=== PATIENT | female | born 1950 | race Caucasian/White ===

== ENCOUNTER → 2024-09-20 | Outpatient (CLI) | payer MEDICARE ==
--- NOTE | 2024-09-20 18:26 | CT ---
EXAMINATION TYPE: CT knee RT wo con DATE OF EXAM: 09/20/2024 5:19 PM COMPARISON: . None CLINICAL INDICATION: Female, 74 years old with history of M25.561 R KNEE PAIN; PHH, OPAL for right to zaid knee arthroplasty. TECHNIQUE: Axial images were obtained of the CT knee RT wo con, Additional coronal and sagittal refor matted images and soft tissue and bone window were obtained for review. . Contrast used: mL of , (None if empty) Oral contrast used: (None if empty) CT DLP: 644 mGycm, Automated exposure control for dose reduction was used. FINDINGS: The visualized portion of the hips demonstrate mild osteoarthrosis changes with osteophyte formation of the acetabulum. No acute intrapelvic process. The bony structures of the pelvis are intact. Scatte red colonic diverticula are seen in the pelvis. The visualized knee demonstrates osteophyte formation of the tibial plateau, the patella and femoral condyles. There is a cortical defect involving the lateral femoral condyle with subchondral cystic c hange and deformity to the articular surface.. There is joint space narrowing and subchondral scleros is. Small joint effusion is present. No evidence of fracture. Visualized ankle demonstrates multifocal osteoarthrosis changes with osteophyte formation and mild chapito int space narrowing. No evidence of fractures. IMPRESSION: Severe right knee lateral joint osteoarthrosis. [facility], , 09/20/2024 6:24 PM
== END | disposition home or self-care (01) ==
LOC: RADCTMAIN 16:13
PROVIDERS: ATTEND Orthopaedic Surgery
DX: M17.11 Unilateral primary osteoarthritis, right knee (principal); M25.461 Effusion, right knee

== ENCOUNTER → 2024-11-04 | Outpatient (CLI) | payer MEDICARE ==
[2024-11-04 14:59] LABS: Partial Thromboplastin Time 22.7 sec (22.0-30.0); Prothrombin Time 10.6 sec (10.0-12.5)
[2024-11-04 19:24] LABS: HCT 37.2 % (37.2-46.3); HGB 12.2 g/dL (12.0-15.0); MCH 28.8 pg (27.0-32.0); MCHC 32.8 g/dL (32.0-37.0); MCV 87.9 FL (80.0-97.0); Mean Platelet Volume 8.9 FL (9.5-12.2); NRBC Per 100 WBC 0 X 10*3/uL (0.00-0.01); Platelet Count 333 X 10*3/uL (140-440); RBC 4.23 X 10*6/uL (4.10-5.20); RDW 13.9 % (11.5-14.5); WBC 11.34 X 10*3/uL (4.50-10.00)
[2024-11-04 19:26] LABS: Blood Urea Nitrogen 24.9 mg/dL (9.0-27.0); Chloride 103 mmol/L (96-109); Glucose 146 mg/dL (70-110); Potassium 3.8 mmol/L (3.5-5.5); Sodium 142 mmol/L (135-145)
[2024-11-04 19:27] LABS: ALT 13 U/L (8-44); AST 16 U/L (13-35); Albumin 4.1 g/dL (3.8-4.9); Albumin/Globulin Ratio 1.46 Ratio (1.60-3.17); Alkaline Phosphatase 77 U/L (41-126); Calcium 10.3 mg/dL (8.7-10.3); Globulin 2.8 g/dL (1.6-3.3); Total Bilirubin 0.3 mg/dL (0.3-1.2); Total Protein 6.9 g/dL (6.2-8.2)
== END | disposition home or self-care (01) ==
LOC: LABWHC1 14:18
PROVIDERS: ATTEND Orthopaedic Surgery
DX: Z01.818 Encounter for other preprocedural examination (principal); Z22.322 Carrier or suspected carrier of Methicillin resistant Staphylococcus aureus; M17.11 Unilateral primary osteoarthritis, right knee
CPT/HCPCS: 36415; 80053; 83036; 85027; 85610; 85730; 87070

== ENCOUNTER 2024-11-15 13:12 | Day surgery (SDC) | payer MEDICARE ==
[~2024-11-15 13:12] MED LIST: HYDROmorphone 0.5 MG/0.5 ML SYRINGE IVP PRN; LIDOCAINE 1% (10MG/ML) FOR IV START INTRADERMA PRN; ONDANSETRON 4 MG/2 ML VIAL IVP PRN; TRANEXAMIC 1,000 MG/100ML-NACL 1,000 MG in SALINE 1 100ML.BAG IV PRN; TRANEXAMIC 1,000 MG/100ML-NACL 1,000 MG in SALINE 1 100ML.BAG IVPB PRN; fentaNYL (PF) 50 MCG/ML 2 ML AMP IVP PRN
[2024-11-15] MEDS: IV FLUID CONTINUATION 1,000 ML IV ONE (13:53)
[2024-11-15] MEDS: DOCUSATE 100 MG CAP PO PRN (13:58)
[2024-11-15] MEDS: ACETAMINOPHEN TAB 500 MG TAB PO PRN (13:58)
[2024-11-15] MEDS: LACTATED RINGERS 1,000 ML IV SCH (13:58)
[2024-11-15] MEDS: oxyCODONE ER 10 MG TAB.ER.12H PO PRN (13:59)
[2024-11-15] MEDS: KETOROLAC 15 MG/ML 1 ML VIAL IVP PRN (14:01)
[2024-11-15] MEDS: DEXAMETHASONE SOD PHOSPHATE 10 MG/ML 1 ML VIAL IV PRN (14:02)
[2024-11-15] MEDS: ONDANSETRON 4 MG/2 ML VIAL IVP ONE (14:02)
[2024-11-15] MEDS: FAMOTIDINE 20 MG/2 ML VIAL IVP PRN (14:03)
[2024-11-15] MEDS: MIDAZOLAM 2 MG/2 ML VIAL IV PRN (14:48)
--- NOTE | 2024-11-15 15:09 | P.ANPRN ---
Procedure Note - Anesthesia - Nerve Block Performed Right Adductor Canal Single Time Out Performed: Yes Date of Procedure: 11/15/24 Procedure Start Time: 14:48 Procedure Stop Time: 14:57 Location of Patient: PreOp Indication: Acute Post-Operative Pain, Requested by Surgeon Sedation Type: Sedate with meaningful contact maintained Preparation: Sterile Prep Position: Supine Needle Types: Pajunk Needle Gauge: 21 Ultrasound used to visualize needle placement: Yes Ultrasound used to observe medication spread: Yes Injectate: 0.5% Ropivacaine (see comment for volume) (20 mL +10 mL normal saline + 4 mg dexamethasone) Blood Aspirated: No Pain Paresthesia on Injection Noted: No Resistance on Injection: Normal Image Stored and Saved: Yes Events: Uneventful and Well Tolerated
--- NOTE | 2024-11-15 15:10 | P.ANPRN ---
Procedure Note - Anesthesia - Nerve Block Performed Right Carleeck Single Time Out Performed: Yes Date of Procedure: 11/15/24 Procedure Start Time: 14:58 Procedure Stop Time: 15:05 Location of Patient: PreOp Indication: Acute Post-Operative Pain, Requested by Surgeon Sedation Type: Sedate with meaningful contact maintained Preparation: Sterile Prep Position: Left Lateral Needle Types: Pajunk Needle Gauge: 21 Ultrasound used to visualize needle placement: Yes Ultrasound used to observe medication spread: Yes Injectate: 0.5% Ropivacaine (see comment for volume) (20 mL +10 mL normal saline+ 4 mg dexamethasone) Blood Aspirated: No Pain Paresthesia on Injection Noted: No Resistance on Injection: Normal Image Stored and Saved: Yes Events: Uneventful and Well Tolerated
[2024-11-15] MEDS ORDERED: PHENYLEPHRINE 10 MG/ML VIAL ONE (15:26)
[2024-11-15] MEDS ORDERED: SODIUM CHLORIDE 0.9% (PF) 10 ML VIAL ONE (15:26)
[2024-11-15] MEDS ORDERED: PROPOFOL 10 MG/ML 20 ML VIAL IV ONE (15:26)
[2024-11-15] MEDS ORDERED: ROPIVACAINE 5 MG/ML 30 ML VIAL ONE (15:26)
[2024-11-15] MEDS ORDERED: ROCURONIUM 10 MG/ML (5 ML VIAL) IV ONE (15:26)
[2024-11-15] MEDS ORDERED: TRANEXAMIC 1,000 MG/100ML-NACL PREMIX BAG ONE (15:26)
[2024-11-15] MEDS ORDERED: fentaNYL (PF) 50 MCG/ML 2 ML AMP ONE (15:26)
[2024-11-15] MEDS ORDERED: SUCCINYLCHOLINE CHLORIDE 200 MG/10 ML VIAL IV ONE (15:26)
[2024-11-15] MEDS ORDERED: NEOSTIGMINE 1 MG/ML 10 ML VIAL ONE (15:26)
[2024-11-15] MEDS ORDERED: GLYCOPYRROLATE 0.2 MG/ML 2 ML VIAL ONE (15:26)
[2024-11-15] MEDS ORDERED: LIDOCAINE 1% INJ 10MG/ML (20 ML MDV) ONE (15:26)
[2024-11-15] MEDS ORDERED: DEXAMETHASONE SOD PHOSPHATE 4 MG/ML 1 ML VIAL ONE (15:26)
[2024-11-15] MEDS: ROPIVACAINE/EPI/CLONIDINE/KET 50 ML SYRINGE MISCELLANE PRN (16:16)
[2024-11-15] MEDS: LACTATED RINGERS 1,000 ML IV ONE (16:21)
--- NOTE | 2024-11-15 17:27 | P.OP ---
Date of Procedure: 11/15/24 Preoperative Diagnosis: Severe right knee osteoarthritis Postoperative Diagnosis: Same Procedure(s) Performed: 1. Right total knee arthroplasty 2. Computer assisted musculoskeletal navigation using CT/MRI images Implants: 1. [employer] CR Femur Size #2 2. [employer] [place] Tibial Base Size #1 3. [employer] CS poly Size #10 4. [employer] all poly patella, Size #27 Anesthesia: KESHIAA, regional Surgeon: Nir Quinonez Custom Shoe Designer And Maker #1: Kennedy Zepeda Estimated Blood Loss (ml): 100 IV fluids (ml): 800 Pathology: none sent Condition: stable Disposition: PACU Indications for Procedure: I met with the patient preoperatively in the office setting and discussed treatment of their symptomatic knee arthritis. They failed a long course of nonsurgical treatment and elected to proceed with an elective total knee replacement. I discussed the potential risks and complications at length and gave them ample time to ask questions. Risks discussed included: risks from anesthesia, superficial site surgical infection, acute and/or chronic periprosthetic joint infection, delayed wound healing, drainage, wound necrosis, instability, stiffness, stiffness requiring manipulation and/or revision surgery, damage to local blood vessels or nerves, aseptic loosening of the implants, extensor mechanism issues including disruption, patellar maltracking, avascular necrosis etc., continued or worsened knee pain, generalized dissatisfaction with surgical outcome, need for revision surgery, an inability to regain preinjury level of function, DVT, PE, other medical complications, and possibly loss of life or limb. The patient voiced their understanding that while these are the most common complications other less common complications are possible. They provided both their verbal and written consent to go forward with surgery. Operative Findings: Severe lateral compartment arthritis, moderate patellofemoral and medial compartment arthritis Description of Procedure: The patient was identified in preoperative holding and the correct operative extremity was verified and marked with a marker. I reviewed the consent form with the patient at length. All of their questions were answered. The patient was given a block by anesthesia. They were then brought back to the operating room. They were transferred onto the operating room table where a general anesthetic, preoperative antibiotics, and tranexamic acid were administered by anesthesia. A tourniquet was applied to the proximal aspect of the operative extremity. The contralateral extremity was padded under the heel and secured to the operating room table with a nonsterile blue towel and tape. The ipsilateral arm was carefully draped across the patient's chest and secured with a pillow and foam. A post was applied over the lateral aspect of the ipsilateral thigh and a bolster was placed under the ipsilateral foot. I verified that the operative extremity was stable and the knee was flexed to 90. The operative extremity was then placed in a leg pugh, nonsterile drapes were applied, and the extremity was prepped and draped sterilely in the standard sterile fashion. Prior to starting surgery timeout was performed identifying the correct patient, operative extremity, and procedure. The leg was then elevated, exsanguinated with an Esmarch bandage, and the tourniquet was inflated. An anterior midline incision was made sharply with a scalpel. Once I had dissected deep to the superficial fascial layer medial and lateral flaps were elevated. A medial parapatellar arthrotomy was created. Upon opening the knee joint there were diffuse arthritic changes in all 3 compartments. The anterior horn of the medial meniscus were sharply released and a medial release was performed around the posterior medial corner of the knee to facilitate retractor placement. The fat pad was excised with electrocautery. The patella was found to be severely arthritic and a provisional cut was made with a sagittal saw to facilitate mobilization of the extensor mechanism during the procedure. Remnants of the ACL and PCL were then excised from the notch. 4 mm pins were then placed within the incision in the medial distal femur and proximal tibia. Arrays were applied to the pins and I verified they were completely tightened. The knee was then registered with the [employer] robot and manipulations in implant position were made to balance the knee and opitmize implant position. Using the Francisco robotic saw all cuts were made in accordance with our plan. After all bony fragments had been removed the cuts were verified with the planar probe. The tibia was then subluxed forward and sized. The knee was brought into flexion and a lamina refining still operator was placed to allow removal of the meniscal remnants both medially and laterally as well as posterior osteophytes. Local anesthetic was then infiltrated around the joint capsule. Trial implants were then placed within the knee. Range of motion and collateral ligament tension was then evaluated. Adjustments in implant size and position were then made accordingly. Once the knee was felt to be appropriately balanced the Francisco pins were removed. The patella was then recut, sized, and punched. A trial patellar button was then placed. With the trial components in place, the patella tracked midline. The femur was then drilled and the trial component removed. The trial tibial component was then appropriately rotated, pinned, and prepared for the keel. All trial components were then removed from the knee. The knee was thoroughly irrigated with pulsatile lavage. Cement was prepared via vacuum mixing in a bowl on the back table. I then hand pressurized cement into the femur and tibia and placed the implants beginning with the tibial base tray and poly liner, femoral component, and finally the patellar button. All extruded cement was removed including from the pin sites. Once the cement had hardened the knee was evaluated one final time with the final polyethylene liner in place. The knee had full extension and flexion and felt stable to varus and valgus stress throughout the arc of motion. The tourniquet was released and with the tourniquet down the patella tracked midline. All bleeders were controlled with electrocautery. The knee was then soaked for 3 minutes with a dilute Betadine soak. The knee was thoroughly irrigated using 3 L of sterile saline and pulsatile lavage. The extensor mechanism was then reapproximated using pop off Vicryl sutures followed by a running barbed suture. The knee was then closed in layers with a 0 strata fix for the deep fascial layer, 2-0 strata fix for the superficial subcutaneous layer and Monocryl and Steri-Strips for the skin. A sterile dressing was applied. I verified that all instrument, sponge, and sharp counts were correct. The patient was then transferred off the operating room table, extubated, and brought to recovery having tolerated the procedure well. Kennedy Zepeda PA-C was required as a skilled energy assistant for patient positioning, draping, exposure, retraction, closure of wound and application of dressing PLAN: The patient can weight-bear as tolerated on the operative extremity. DVT prophylaxis with aspirin 81 mg twice a day based on preoperative risk stratification. Internal medicine for perioperative medical management. 2 doses of post-operative antibiotics. Physical therapy for gait training. Follow-up in the office in 2 weeks for wound check and x-rays of the knee including an AP and lateral.
[2024-11-15] MEDS ORDERED: NALOXONE 0.4 MG/ML 1 ML VIAL IV PRN (17:28)
[2024-11-15] MEDS ORDERED: HYDROcodone/APAP 10-325MG 1 EACH TAB PO PRN (17:28)
[2024-11-15] MEDS ORDERED: hydrOXYzine pamoate 25 MG CAP PO PRN (17:28)
[2024-11-15] MEDS ORDERED: diazePAM 5 MG TAB PO PRN (17:28)
[2024-11-15] MEDS ORDERED: bisacodyL 10 MG SUPP RECTAL PRN (17:28)
[2024-11-15] MEDS ORDERED: NA PHOS,M-B/NA PHOS,DI-BA 133 ML ENEMA RECTAL PRN (17:28)
[2024-11-15] MEDS ORDERED: HYDROmorphone 0.5 MG/0.5 ML SYRINGE IVP PRN ×3 (17:28)
[2024-11-15] MEDS ORDERED: MAGNESIUM HYDROXIDE 2,400 MG/30 ML CUP PO PRN (17:28)
[2024-11-15] MEDS ORDERED: ONDANSETRON 4 MG/2 ML VIAL IVP PRN (17:28)
--- NOTE | 2024-11-15 18:38 | XR ---
EXAMINATION TYPE: XR knee limited RT DATE OF EXAM: 11/15/2024 6:16 PM COMPARISON: None. CLINICAL INDICATION: Female, 74 years old with history of Evaluation for Postop abnormality and align ment, pain TECHNIQUE: 2 view(s) obtained. FINDINGS: Femoral and tibial prostheses have been placed at the knee. No acute fractures are evident. Postsurgi jam soft tissue changes are present. IMPRESSION: 1. No acute fractures post right knee replacement [facility], , 11/15/2024 6:36 PM
[2024-11-15] MEDS: DEXAMETHASONE SOD PHOSPHATE 4 MG/ML 1 ML VIAL IV ONE (21:18)
[2024-11-15] MEDS: ASPIRIN 81 MG PO SCH (21:19)
[2024-11-15] MEDS: SENNOSIDES-DOCUSATE SODIUM 1 EACH TAB PO SCH (21:19)
[2024-11-15] MEDS: SODIUM CHLORIDE 0.9% 1,000 ML IV SCH (21:20)
[2024-11-15] MEDS: HYDROcodone/APAP 5-325MG 1 EACH TAB PO PRN (23:43)
[2024-11-16 08:12] VITALS: BP 113/58; PULSE 85; RESP 17; TEMP 97.5
--- NOTE | 2024-11-16 08:37 | P.DS ---
Providers Attending physician: Nir Quinonez Consults: 11/15/24 17:28 Consult Physician Routine Consulting Provider: Rishi Evans Consult Reason/Comments: medical management Do you want consulting provider notified?: Yes Primary care physician: [facility] Course: This is a 74-year-old female patient, with past medical history of severe right knee osteoarthritis, who failed nonsurgical conservative management. On the patient presented to the [facility] pre-op department for scheduled total knee arthroplasty with Dr. Quinonez. The patient tolerated the procedure well. The patient was transferred to the orthopedic floor. The patient had no acute events over night. The patient's pain has been well-controlled. Patient states they have been able to ambulate with walker to the bathroom 3 cresencio es overnight. Patient was examined at bedside. Patient is resting comfortably in bed. No apparent distress. They are awake, alert and able to answer questions. On inspection the right surgical knee dressing is intact, there is no drainage or strikethrough. The skin surrounding the dressing is free of erythema. There is mild swelling in the operative thigh. Operative femoral nerve function is intact. The operative calf is soft to compression. The patient is able to actively plantarflex and dorsiflex their operative ankle and toes. Plan patient will work with physical therapy. Plan to discharge home today if passes physical therapy. Plan follow up in two weeks in our office. Please see med rec for a list of accurate medications. Assessment: Postop day #1 status post right total knee arthroplasty for severe right knee osteoarthritis Right knee pain Plan - Discharge Summary Discharge Rx Participant: No New Discharge Prescriptions: New Aspirin 81 mg PO BID #60 tab Omeprazole 20 mg PO DAILY #30 tab HYDROcodone/APAP 5-325MG [Hazen 5] 1 - 2 each PO Q6HR PRN #56 tab PRN Reason: Pain Sennosides-Docusate Sodium [Senokot-S] 1 tab PO BID PRN #60 tablet PRN Reason: Constipation Ondansetron [Zofran] 4 mg PO Q6HR PRN #30 tab PRN Reason: Nausea No Action Nitrofurantoin Monohyd/M-Cryst [Macrobid] 100 mg PO BID amLODIPine BESYLATE 5 mg PO DAILY Rosuvastatin [Crestor] 20 mg PO HS Multivitamins, Thera [Multivitamin (formulary)] 1 tab PO DAILY Losartan/Hydrochlorothiazide [Losartan-Hctz 100-25 mg Tab] 1 tab PO DAILY Fluticasone Propionate [Fluticasone Propionate Thompson 50 mcg Nasal Thompson] 1 dose INHALATION DAILY Discharge Medication List Fluticasone Propionate [Fluticasone Propionate Thompson 50 mcg Nasal Thompson] 1 dose INHALATION DAILY 11/08/24 [History] Losartan/Hydrochlorothiazide [Losartan-Hctz 100-25 mg Tab] 1 tab PO DAILY 11/08/24 [History] Multivitamins, Thera [Multivitamin (formulary)] 1 tab PO DAILY 11/08/24 [History] Nitrofurantoin Monohyd/M-Cryst [Macrobid] 100 mg PO BID 11/08/24 [History] Rosuvastatin [Crestor] 20 mg PO HS 11/08/24 [History] amLODIPine BESYLATE 5 mg PO DAILY 11/08/24 [History] Aspirin 81 mg PO BID #60 tab 11/15/24 [Rx] Omeprazole 20 mg PO DAILY #30 tab 11/15/24 [Rx] Ondansetron [Zofran] 4 mg PO Q6HR PRN #30 tab 11/15/24 [Rx] Sennosides-Docusate Sodium [Senokot-S] 1 tab PO BID PRN #60 tablet 11/15/24 [Rx] HYDROcodone/APAP 5-325MG [Hazen 5] 1 - 2 each PO Q6HR PRN #56 tab 11/16/24 [Rx] Follow up Appointment(s)/Referral(s): Nir Quinonez MD [Medical Doctor] - 2 Weeks Activity/Diet/Wound Care/Special Instructions: 1. Weight-bear as tolerated on your operative extremity unless instructed otherwise. Use a walker or other assistive device to ambulate. 2. Leave surgical dressing in place. If your dressing becomes saturated with blood, there is drainage, or the dressing becomes loose please contact the office. 3. It is okay to shower with your surgical dressing, but do not submerge in water (no hot tubs, bath's, swimming etc.) 4. Take your blood clot prevention medication as prescribed (aspirin, Eliquis, Xarelto, and Plavix are commonly prescribed medications for blood clot preve ntion) 5. While taking Hazen or Percocet for pain take a stool softener (Ex: Colace) and drink lots of water. 6. Keep all follow-up appointments as scheduled. You will usually be seen in 1-2 weeks following surgery. 7. Please contact the office with any questions or concerns [phone] Discharge Disposition: HOME WITH HOME HEALTH SERVICES
[2024-11-16 09:06] LABS: Basophils # (A) 0.04 X 10*3/uL (0.00-0.10); Basophils % (A) 0.2 %; Eosinophils # (A) 0 X 10*3/uL (0.04-0.35); Eosinophils % (A) 0 %; HCT 32.9 % (37.2-46.3); Lymphocytes # (A) 0.64 X 10*3/uL (0.90-5.00); Lymphocytes % (A) 3.7 %; MCH 28.8 pg (27.0-32.0); MCHC 33.4 g/dL (32.0-37.0); MCV 86.1 FL (80.0-97.0); Monocytes # (A) 0.56 X 10*3/uL (0.20-1.00); Monocytes % (A) 3.2 %; NRBC Per 100 WBC 0 X 10*3/uL (0.00-0.01); Neutrophils # (A) 16.03 X 10*3/uL (1.80-7.70); Neutrophils % (A) 92.3 %; Platelet Count 245 X 10*3/uL (140-440); RBC 3.82 X 10*6/uL (4.10-5.20); RDW 13.7 % (11.5-14.5); WBC 17.37 X 10*3/uL (4.50-10.00)
== END 2024-11-16 12:25 | disposition home health service (06) ==
LOC: OR 13:12 → 4SSUR 17:33 → OR 11-16 12:25
PROVIDERS: ATTEND Orthopaedic Surgery
DX: M17.11 Unilateral primary osteoarthritis, right knee (principal)
CPT/HCPCS: 0055T; 27447; 64447; 64999; 85025